=== PATIENT | male | born 1940 | race Caucasian/White ===

== ENCOUNTER → 2021-03-26 | Day surgery (SDC) | payer OTHER, BC ==
[2021-03-21 15:14] VITALS: BMI 18.6
[2021-03-26 11:59] VITALS: TEMP 97.6
[2021-03-26 12:20] VITALS: BP 150/58; PULSE 60
== END | disposition home or self-care (01) ==
LOC: FASU-ENDO 10:13
PROVIDERS: ATTEND Internal Medicine Gastroenterology
PROC: 0DJD8ZZ Inspection of Lower Intestinal Tract, Via Natural or Artificial Opening Endoscopic (ICD-10-PCS; principal; 2021-03-26 11:16)
DX: R19.7 Diarrhea, unspecified (principal); K57.30 Diverticulosis of large intestine without perforation or abscess without bleeding; K64.1 Second degree hemorrhoids
CPT/HCPCS: 82962